=== PATIENT | female | born 1970 | race Hispanic/Latino ===

== ENCOUNTER 2025-06-04 11:13 | Emergency (ER) | payer SELFPAY ==
[2025-06-04] MEDS ORDERED: Lidocaine 1% w/Epinephrine 1:100K 20 ML VIAL ONE (13:57)
[2025-06-04] MEDS ORDERED: Bacitracin 1 PK ONE (14:40)
[2025-06-04] MEDS ORDERED: Boostrix 0.5 ML (Tdap) VIAL (>/=7 yrs of age) ONE (14:40)
== END 2025-06-04 14:56 | disposition home or self-care (01) ==
LOC: ERS 11:13
DX: S61.511A Laceration without foreign body of right wrist, initial encounter (principal); Z23 Encounter for immunization; W25.XXXA Contact with sharp glass, initial encounter
CPT/HCPCS: 12002; 90471; 90715